=== PATIENT | female | born 1935 | race Caucasian/White ===

== ENCOUNTER 2023-02-05 21:38 | Emergency (ER) | payer MEDICARE, BC, SELFPAY ==
[2023-02-05 21:45] VITALS: BP 177/89; PULSE 76; RESP 20; TEMP 36.6; O2SAT 97; BMI 21.6
--- NOTE | 2023-02-05 21:45 | ED.NURSE ---
pt denies any spinal tenderness, all joints full ROM - denies any pain.
--- NOTE | 2023-02-05 22:29 | ED.NURSE ---
patient walked lap around ER with walker, steady gait. Denies any concerns.
[2023-02-05 22:33] VITALS: BP 165/84; PULSE 80; RESP 20; TEMP 36.7; O2SAT 97
[2023-02-05 22:34] VITALS: BP 165/84; PULSE 80; RESP 20; TEMP 36.7
--- NOTE | 2023-02-06 00:22 | ED.GENADULT ---
HPI - General Adult General Chief complaint: Laceration/Wound Stated complaint: Slipped in Bathroom Time Seen by Provider: 02/05/23 21:41 Source: patient and family Mode of arrival: ambulatory Limitations: no limitations History of Present Illness HPI narrative: 87-year-old female presents to the emergency department with her daughter after she suffered a fall at her assisted living facility, [facility]. Patient reports that she was walking to the bathroom when she slipped. She was wearing older slipper socks at the time. She fell forward, hitting her head on the toilet. There was no loss of consciousness, she was able to get herself up without any assistance and pulled the assistance cord in her bathroom. This caused staff to attend her quickly. She had some bleeding coming from a small laceration on her right eyebrow but was answering questions appropriately. No other areas of injury were identified. She was able to get herself up without assistance. She has told her story similarly to the staff at her care facility, her daughter who accompanies her today, the nurses and myself. She denies dizziness, chest pain, palpitations or other symptoms causing her to fall. She has felt well today. She has eaten normally, bowel movements have been normal, there has been no nausea or vomiting. She denies any neurological changes. On specific questioning, she admits that she has had 2 alcoholic beverages just prior to the fall. She reports that she does this most nights. Her daughter states that she only typically drinks 1 alcoholic beverage per night that is typically 1 oz of whiskey in a tall glass of soda. It is clear that the patient is drinking every day. Daughter states that patient is at her neurological baseline. Together, we discussed the risks and benefits of extensive workup. I am concerned about the patient possibly being intoxicated. We agree that if she can ambulate safely and answer all my questions that additional testing regarding this would not likely be helpful. Daughter does not want me to check a blood alcohol level or perform unnecessary tests if our exam is otherwise normal. I reviewed the records and see that she has not been evaluated for previous falls or alcohol related concerns in the emergency department. Past medical history is notable for diabetes, [id number]. She also has chronic pain from fibromyalgia for which she takes duloxetine and states that this is why she has alcohol at night because it less since her pain and helps her sleep. Remainder of her medications are as reflected in the medication list per patient, allergies are to amoxicillin and rofecoxib. No recent pertinent travel or illness exposures. ROS is notable for no trauma or injury besides the small laceration to the right eyelid as above, denies any body pain, generalized, cardiac, GI symptoms or other systems times 12 systems. Related Data Home Medications Medication Instructions Recorded Confirmed atorvastatin 40 mg tablet 40 mg PO DAILY 02/05/23 02/05/23 duloxetine 30 mg capsule,delayed 30 mg PO DAILY 02/05/23 02/05/23 release levothyroxine 50 mcg tablet 50 mcg PO DAILY 02/05/23 02/05/23 lisinopril 40 mg tablet 40 mg PO DAILY 02/05/23 02/05/23 metformin 500 mg tablet,extended 500 mg PO BID 02/05/23 02/05/23 release 24 hr metoprolol succinate 100 mg 100 mg PO DAILY 02/05/23 02/05/23 tablet,extended release 24 hr montelukast 10 mg tablet 10 mg PO DAILY 02/05/23 02/05/23 Allergies Allergy/AdvReac Type Severity Reaction Status Date / Time amoxicillin Allergy Mild Rash Verified 02/05/23 22:04 rofecoxib Allergy Mild Weakness Verified 02/05/23 22:04 [facility] Medical History Debility ?R53.81 - Other malaise (ICD-10) Depression, major, recurrent, mild ?F33.0 - Major depressive disorder, recurrent, mild (ICD-10) Essential hypertension ?I10 - Essential (primary) hypertension (ICD-10) Fibromyalgia ?M79.7 - Fibromyalgia (ICD-10) Hyperlipidemia ?E78.5 - Hyperlipidemia, unspecified (ICD-10) Hypothyroidism ?E03.9 - Hypothyroidism, unspecified (ICD-10) TIA (transient ischemic attack) ?G45.9 - Transient cerebral ischemic attack, unspecified (ICD-10) Type 2 diabetes mellitus without complication ?E11.9 - Type 2 diabetes mellitus without complications (ICD-10) Surgical History History of colonoscopy ?Z98.890 - Other specified postprocedural states (ICD-10) History of hysterectomy ?Z90.710 - Acquired absence of both cervix and uterus (ICD-10) No significant past surgical history Social History Smoking Status: Never smoker Second hand tobacco smoke exposure: No How often do you have a drink containing alcohol: never How often do you have six or more drinks on one occasion: Never AUDIT-C Alcohol total score: 0 Non-prescribed substance use: denies use Exam Const: Vital Signs, click to edit/add: Vital Signs - 24 hr 02/05/23 21:45 02/05/23 22:33 02/05/23 22:34 Temperature 97.8 F 98.0 F 98.0 F Pulse Rate [Right Pulse Oximeter] 76 80 80 Respiratory Rate 20 20 20 Blood Pressure [Le ft Upper Arm] 177/89 H 165/84 H 165/84 H Pulse Oximetry 97 97 Oxygen Delivery Me thod Room Air Room Air Documenting provider has reviewed patient's vital signs: yes Common normals: no apparent distress and alert General appearance: cooperative Other: She is giggly and does seem slightly intoxicated HENMT: Common normals: TM's normal bilaterally Tympanic membrane: TM's normal bilaterally Mouth: oral and palatal mucosa normal Throat: posterior oropharynx normal Other: No skull deformity. 1 cm laceration on right upper eyelid. No tenderness to brown bone. No crepitus or deformity to the facial bones. Mandible normal on exam with no tenderness. Jaw opens and closes normally. The oropharynx with no signs of tongue biting, dental injury or abnormalities to the oropharynx. Eye: Common normals: PERRL and EOMs intact bilaterally General eye: normal appearance of both eyes Pupil: PERRL Neck & C-Spine: Common normals: full ROM and no lymphadenopathy Cervical spine: cervical ROM normal; no cervical spine tenderness Resp: Common normals: normal respiratory effort, no retractions, no use of accessory muscles and clear to auscultation bilaterally Effort & inspection: able to speak in complete sentences Auscultation: clear to auscultation bilaterally Cardio: Common normals: no murmurs and peripheral pulses 2+ throughout Peripheral pulses: pulses 2+ throughout Other: Heart rate with PACs verses bigeminy. Does seem regularly irregular. GI: Common normals: Normal to inspection, nondistended, normoactive bowel sounds present, soft to palpation and no hepatosplenomegaly Palpation: soft and no hepatosplenomegaly Back & Pelvis: Common normals: thoracic and lumbar spine normal to inspection and no thoracic nor lumbar tenderness Extremity: Common normals: normal to inspection, full ROM, normal capillary refill, no joint enlargement and no pedal edema Other: No tenderness to palpation of clavicles, shoulders, wrists, hips, pelvis, knees, ankles or feet. Neuro: Common normals: CN's II-XII intact bilaterally, moves all extremities, no focal motor deficits and no sensory deficits noted Sensorium/orientation: alert Speech: speech normal Motor exam: no tremor noted Other: She ambulates around the emergency department with use of a walker with no significant deficits. Joking, answering questions appropriately. Psych: Attitude: engaged Activity/motor behavior: appropriate eye contact Insight: fair Judgement: fair Other: Lightly buzz but no severe intoxication. Skin: Narrative: 1 cm laceration on right eyelid, oozing slightly. Surrounding bruising but with no other signs of trauma or injury. No other areas of open skin, abrasions or lacerations. Course Vital Signs Vital signs: Initial Vital Signs Temperature 97.8 F 02/05/23 21:45 Temperature Source Temporal Artery Scan 02/05/23 21:45 Pulse Rate 76 02/05/23 21:45 Respiratory Rate 20 02/05/23 21:45 Blood Pressure 177/89 H 02/05/23 21:45 Blood Pressure Mean 118 02/05/23 21:45 Blood Pressure Position Sitting 02/05/23 21:45 Pulse Oximetry 97 02/05/23 21:45 Oxygen Delivery Method Room Air 02/05/23 21:45 Vital Signs Temperature 97.8 F 02/05/23 21:45 Pulse Rate 76 02/05/23 21:45 Respiratory Rate 20 02/05/23 21:45 Blood Pressure 177/89 H 02/05/23 21:45 Pulse Oximetry 97 02/05/23 21:45 Oxygen Delivery Method Room Air 02/05/23 21:45 Temperature 98.0 F 02/05/23 22:34 Pulse Rate 80 02/05/23 22:34 Respiratory Rate 20 02/05/23 22:34 Blood Pressure 165/84 H 02/05/23 22:34 Pulse Oximetry 97 02/05/23 22:33 Oxygen Delivery Method Room Air 02/05/23 22:33 Medical Decision Making MDM Narrative Medical decision making narrative: Elected to do an EKG because of the heart rhythm. This shows a sinus rhythm with some PACs and slight ever and conduction but rate is 74. There are otherwise no significant ST or T-wave abnormalities. No signs of ischemia. This is per my interpretation. I discussed the alcohol use with patient and her daughter. They are not overly concerned. As stated above, she is ambulating safely, answering questions appropriately and seems appropriate for medical decision making. They were receptive to my feedback that the amount of alcohol she is consuming at her age is not safe. She should not be drinking daily and she should never be drinking more than 1 alcoholic beverage per day. They are not interested in additional blood work to look at her heart. No interest in head CT since her neurological exam was essentially normal. They do not want alcohol level. They have no other concerns today. We elect to treat the small laceration only. Laceration repair: 1 cm right upper eyelid lesion with overlying bruising. Cleanse gently with soap and water. Still some blood oozing. Gently dried. Covered with Dermabond with good hemostasis and closure. Well tolerated Discharge Plan Discharge Clinical Impression: Facial laceration Patient Disposition: Home w/ Parent or Adult Condition: Improved Instructions: Laceration (DC) Additional Instructions: I have applied a specialized glue to cover the wound on your eyelid. This has controlled the bleeding. The eyelid will continue to swell and bruise. The I will turn black underneath the eye and this is not of concern. The eyelid may swell to the point where they I cannot be open for a couple of days and this is also okay. I do think that alcohol contributed to the fall today. As we discussed, I would recommend limiting the alcohol and especially no more than 1 drink per 24 hours. It is not advised to drink alcohol every day at your age either. If there is any loss of consciousness, seizure, persistent vomiting, it would warrant repeat evaluation in the emergency department. Activity Level: Activity as Tolerated Discharge Diet: Regular Prescriptions: No Action atorvastatin 40 mg tablet 40 mg PO DAILY levothyroxine 50 mcg tablet 50 mcg PO DAILY montelukast 10 mg tablet 10 mg PO DAILY lisinopril 40 mg tablet 40 mg PO DAILY metformin 500 mg tablet extended release 24 hr 500 mg PO BID duloxetine 30 mg capsule,delayed release(DR/EC) 30 mg PO DAILY metoprolol succinate 100 mg tablet extended release 24 hr 100 mg PO DAILY Follow Up/Referrals: Reed Goodman PA-C [Primary Care Provider] - Stand Alone Forms: [employer] Info Instructions
== END 2023-02-05 22:34 | disposition home or self-care (01) ==
PROVIDERS: Emergency Provider Family Medicine; PCP Physician Assistant
DX: S01.111A Laceration without foreign body of right eyelid and periocular area, initial encounter (principal); W01.198A Fall on same level from slipping, tripping and stumbling with subsequent striking against other object, initial encounter
CPT/HCPCS: 93005; 99282; 99283

== ENCOUNTER 2023-08-10 13:10 | Outpatient (CLI) | payer MEDICARE, BC, SELFPAY | END 2023-08-10 13:11 | disposition home or self-care (01) | LOC: NFLDREF 08-13 17:08 | PROVIDERS: PCP Physician Assistant; Referring Provider Physician Assistant; Visit Provider Nurse Practitioner Family | DX: R30.0 Dysuria (principal) | CPT/HCPCS: 87086; 87186 ==

== ENCOUNTER 2025-01-15 13:22 | Emergency (ER) | payer MEDICARE, BC, SELFPAY ==
[2025-01-15 13:26] VITALS: BP 142/76; PULSE 69; RESP 18; TEMP 36.2; O2SAT 97; BMI 21.5
--- NOTE | 2025-01-15 13:42 | CRLHL7_ITS ---
For Patients: As a result of the Century Cures Act, medical imaging exams and procedure reports are released immediately into your electronic medical record. You may view this report before your referring provider. If you have questions, please contact your health care provider. INDICATION: Weakness TECHNIQUE: CT head without contrast. COMPARISON: Head CT 05/20/2020 FINDINGS: CSF spaces: Within normal limits for age. Brain parenchyma: No intracranial bleed or mass effect. Low-density within the deep white matter with old right thalamic lacunar infarctions. Skull base and calvarium: The visualized paranasal sinuses and mastoid air cells demonstrate no acute or significant findings. The visualized orbits are grossly unremarkable. No skull fractures. Atherosclerosis. Bilateral temporomandibular joint osteoarthritis. IMPRESSION: 1. No intracranial bleed or mass effect. 2. 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 Please note that all CT scans at this facility use dose modulation, iterative reconstruction, and/or weight-based dosing when appropriate to reduce radiation dose to as low as reasonably achievable. Dictated by Teo Sewell MD @ 01/15/2025 2:23:21 PM (Electronically Signed)
--- NOTE | 2025-01-15 13:51 | ED.GENADULT ---
HPI - General Adult General Chief complaint: Weakness Stated complaint: Weakness Time Seen by Provider: 01/15/25 13:30 History of Present Illness HPI narrative: Patient is an 89-year-old female with a DNR DNI order who is here with her daughter. She lives at assisted living. She was doing well this morning but then had a period weakness over the last couple hours. She has had some sinus drainage but otherwise has no complaints. She was at physical therapy and they felt that she was not herself so they came to the ER. Again they reiterate the DNR DNI order and no aggressive treatment. They do want some workup though to see if there is a reason why she has fatigue. She declines any specific pain no chest pain, breathing problem, fever chills rigors. She has had no dysuria frequency. She has had some loose stools but she reports ?that is been forever?. She has typically active with a walker. She has had no falls. No trauma. Related Data Home Medications ?Medication ?Instructions ?Recorded ?Confirmed atorvastatin 40 mg tablet 40 mg PO DAILY 02/05/23 01/15/25 duloxetine 30 mg capsule,delayed 30 mg PO DAILY 02/05/23 01/15/25 release levothyroxine 50 mcg tablet 50 mcg PO DAILY 02/05/23 01/15/25 lisinopril 40 mg tablet 40 mg PO DAILY 02/05/23 01/15/25 metformin 500 mg tablet,extended 500 mg PO BID 02/05/23 01/15/25 release 24 hr metoprolol succinate 100 mg 100 mg PO DAILY 02/05/23 01/15/25 tablet,extended release 24 hr montelukast 10 mg tablet 10 mg PO DAILY 02/05/23 01/15/25 fluticasone propionate 50 2 spray intranasal DAILY 10/07/24 01/15/25 mcg/actuation nasal spray,suspension peg 400-propylene glycol 01/15/25 Allergies Allergy/AdvReac Type Severity Reaction Status Date / Time amoxicillin Allergy Mild Rash Verified 10/09/24 10:36 rofecoxib Allergy Mild Weakness Verified 10/09/24 10:36 Review of Systems Status of ROS: Reports: 6 or more systems reviewed and unremarkable except as noted in History and below [facility] Medical History Dysuria ?R30.0 - Dysuria (ICD-10) Fibromyalgia ?M79.7 - Fibromyalgia (ICD-10) TIA (transient ischemic attack) ?G45.9 - Transient cerebral ischemic attack, unspecified (ICD-10) Hypothyroidism ?E03.9 - Hypothyroidism, unspecified (ICD-10) Hyperlipidemia ?E78.5 - Hyperlipidemia, unspecified (ICD-10) Depression, major, recurrent, mild ?F33.0 - Major depressive disorder, recurrent, mild (ICD-10) Essential hypertension ?I10 - Essential (primary) hypertension (ICD-10) Type 2 diabetes mellitus without complication ?E11.9 - Type 2 diabetes mellitus without complications (ICD-10) Debility ?R53.81 - Other malaise (ICD-10) Surgical History History of phacoemulsification of cataract of both eyes with intraocular lens implantation ?Z98.41 - Cataract extraction status, right eye (ICD-10) ?Z98.42 - Cataract extraction status, left eye (ICD-10) ?Z96.1 - Presence of intraocular lens (ICD-10) History of colonoscopy ?Z98.890 - Other specified postprocedural states (ICD-10) History of hysterectomy ?Z90.710 - Acquired absence of both cervix and uterus (ICD-10) Social History Smoking Status: Never smoker Second hand tobacco smoke exposure: No How often do you have a drink containing alcohol: never How often do you have six or more drinks on one occasion: Never AUDIT-C Alcohol total score: 0 Non-prescribed substance use: denies use Exam Narrative: Exam Narrative: Objective: Patient's vital signs short to be afebrile with a good blood pressure 142/76 O2 sat excellent at 97% pulse is 69 regular rash rate 18 Alert orient x3, slow to respond but I think that is normal baseline for her per her daughter. She appears to slightly pale. She does not have pale conjunctiva however Mouth is dry Neck is supple Chest clear diminished air exchange Heart rhythm regular 2/6 systolic murmur occasional ectopic beat noted Abdomen benign soft nontender Extremities are no edema neurologic nonfocal, patient moves all 4s, she has no bruising or changes on her legs or arms. Const: Vital Signs, click to edit/add: Vital Signs - 24 hr 01/15/25 13:26 01/15/25 13:52 01/15/25 14:02 Temperature 97.1 F L Pulse Rate 67 Pulse Rate [Pulse Oximeter] 69 Respiratory Rate 18 20 Blood Pressure 120/60 Blood Pressure [Ri ght Upper Arm] 142/76 H Pulse Oximetry 97 97 98 Oxygen Delivery Me thod Room Air Room Air 01/15/25 14:31 Temperature Pulse Rate 69 Pulse Rate [Pulse Oximeter] Respiratory Rate 20 Blood Pressure 141/73 H Blood Pressure [Ri ght Upper Arm] Pulse Oximetry 97 Oxygen Delivery Me thod Room Air Course Vital Signs Vital signs: Initial Vital Signs Temperature 97.1 F L 01/15/25 13:26 Temperature Source Temporal Artery Scan 01/15/25 13:26 Pulse Rate 69 01/15/25 13:26 Respiratory Rate 18 01/15/25 13:26 Blood Pressure 142/76 H 01/15/25 13:26 Blood Pressure Mean 98 01/15/25 13:26 Pulse Oximetry 97 01/15/25 13:26 Oxygen Delivery Method Room Air 01/15/25 13:26 Vital Signs Temperature 97.1 F L 01/15/25 13:26 Pulse Rate 69 01/15/25 13:26 Respiratory Rate 18 01/15/25 13:26 Blood Pressure 142/76 H 01/15/25 13:26 Pulse Oximetry 97 01/15/25 13:26 Oxygen Delivery Method Room Air 01/15/25 13:26 Temperature 97.1 F L 01/15/25 13:26 Pulse Rate 69 01/15/25 14:31 Respiratory Rate 20 01/15/25 14:31 Blood Pressure 141/73 H 01/15/25 14:31 Pulse Oximetry 97 01/15/25 14:31 Oxygen Delivery Method Room Air 01/15/25 14:31 Medications Administered Medications: Discontinued Medications Generic Name Dose Route Start Last Admin Trade Name Freq PRN Reason Stop Dose Admin Sodium Chloride 500 mls @ 500 mls/hr 01/15/25 13:42 01/15/25 14:44 0.9 % Sodium Chloride 500 Ml IV 01/15/25 14:41 Infused .Q1H ONE Infusion Medical Decision Making MDM Narrative Medical decision making narrative: 89-year-old female living at assisted living with a history of type 2 diabetes history of debility. At this point there has been some generalized weakness over the last few hours. I think will check a head CT, labs, give some IV fluids she appears dry and mildly dehydrated. Will check urinalysis. Disposition pending findings and clinical response. Again her daughter reiterates the DNR DNI status. Addendum 3:45 p.m.: Patient's head CT was read as basically unremarkable other than chronic changes, there is some old type infarcts but nothing acute. White count is normal 7004 in 10 hemoglobin 11.3, ER profile shows a low sodium at 128, the rest of ER profile looks unremarkable other glucose slightly elevated at 144 nonfasting. Alkaline phos is elevated at 209, her CRP however is negative at point less than 0.05. ProBNP is elevated at 11 30, viral studies are negative, urinalysis is pending. Patient did receive IV fluids she feels little bit better. Will review her urinalysis when returns and treat if abnormal. Patient will need to be tested with ambulation if she can not walk she likely will need observation status the hospital probably transition to a fpc. Addendum 4:05 p.m. the patient passed a road test and is able to walk with her walker no problem. Should be discharged home. Urinalysis looks negative. Lab Data Labs: Lab Results 01/15/25 01/15/25 Range/Units 14:05 15:00 WBC 7.41 (4.50-11.00) K/uL RBC 3.72 L (4.00-5.20) m/uL Hgb 11.3 L (12.0-16.0) gm/dL Hct 33.9 (33.0-51.0) % MCV 91 (80-100) fL MCH 30 (26-34) pg MCHC 33 (32-36) gm/dL RDW Coeff of Alexei 13.1 (11.5-15.5) % Plt Count 198 (140-440) K/uL Neut % (Auto) 72.8 H (42.0-72.0) % Lymph % (Auto) 18.8 L (20-44) % Saunders % (Auto) 6.6 (0.0-11.0) % Eos % (Auto) 1.2 (0.0-7.0) % Baso % (Auto) 0.3 (0.0-3.0) % Neut # (Auto) 5.40 (1.7-7.0) K/uL Lymph # (Auto) 1.40 (0.90-2.90) K/uL Saunders # (Auto) 0.50 (0.00-0.90) K/UL Eos # (Auto) 0.09 (0.00-0.50) K/uL Baso # (Auto) 0.02 (0.00-0.30) K/uL Abs Immat Gran (auto) 0.02 (0.00-0.30) K/uL Imm/Tot Granulo (auto) 0.3 % INR 0.94 (0.91-1.10) Sodium 128 L (135-149) mmol/L Potassium 4.2 (3.6-5.1) mmol/L Chloride 95 L (96-114) mmol/L Carbon Dioxide 23 (20-32) mmol/L Anion Gap 10 (7-15) mEq/L BUN 20 (7-30) mg/dL Creatinine 1.3 (0.5-1.5) mg/dL Estimated Creat Clear 26.33 Estimated GFR 40 ml/min Glucose 144 H (60-115) mg/dL Calcium 8.9 (8.4-10.6) mg/dL Total Bilirubin 0.8 (0.1-1.5) mg/dL Direct Bilirubin 0.3 (0.0-0.5) mg/dL AST 26 (12-35) U/L ALT 15 (4-35) U/L Alkaline Phosphatase 209 H (40-150) U/L Troponin I < 0.01 (0.01-0.04) ng/mL C-Reactive Protein < 0.5 L (0.5-1.0) mg/dL NT-Pro-B Natriuret Pep 1130 pg/mL Total Protein 6.6 (6.0-8.3) g/dL Albumin 4.2 (3.3-5.0) g/dL Urine Color Yellow (Yellow) Urine Appearance Clear (Clear) Urine pH 5.5 (5.0-8.5) Ur Specific [place] 1.015 (1.000-1.030) Urine Protein 1+ A (Negative) Urine Glucose (UA) Negative (Negative) Urine Ketones Negative (Negative) Urine Blood Negative (Negative) Urine Nitrite Negative (Negative) Urine Bilirubin Negative (Negative) Urine Urobilinogen 0.2 (0.2-1.0) Ur Leukocyte Esterase Negative (Negative) Urine RBC 0-2 (0-2) Urine WBC 0-2 (0-5) Ur Squamous Epith Cells None (None-Few) Urine Bacteria None (None) SARS-CoV-2 (PCR) Negative SARS-CoV-2 (Negative) Influenza Type A (PCR) Negative PCR FLU A (Negative) Influenza Type B (PCR) Negative PCR FLU B (Negative) RSV (PCR) Negative PCR RSV (Negative) Discharge Plan Discharge Clinical Impression: Weakness Patient Disposition: Home w/ Parent or Adult Condition: Improved Additional Instructions: Light activity, push fluids, return if problems or concerns. Update primary care in a day or 2. Would recommend to get a repeat sodium level done within the next 4-5 days. Activity Level: Light activity Discharge Diet: Regular Prescriptions: No Action fluticasone propionate 50 mcg/actuation spray,suspension 2 spray intranasal DAILY peg 400-propylene glycol atorvastatin 40 mg tablet 40 mg PO DAILY levothyroxine 50 mcg tablet 50 mcg PO DAILY montelukast 10 mg tablet 10 mg PO DAILY lisinopril 40 mg tablet 40 mg PO DAILY metformin 500 mg tablet extended release 24 hr 500 mg PO BID duloxetine 30 mg capsule,delayed release(DR/EC) 30 mg PO DAILY metoprolol succinate 100 mg tablet extended release 24 hr 100 mg PO DAILY Follow Up/Referrals: Reed Goodman PA-C [Primary Care Provider] - Stand Alone Forms: [employer] Info Instructions
[2025-01-15 13:52] VITALS: O2SAT 97
[2025-01-15] MEDS: 0.9 % SODIUM CHLORIDE 500 ML 500 ML IV (14:00)
[2025-01-15 14:02] VITALS: BP 120/60; PULSE 67; RESP 20; O2SAT 98
[2025-01-15 14:14] LABS: Basophils Absolute Auto 0.02 K/uL (0.00-0.30); Basophils Percent Auto 0.3 % (0.0-3.0); Eosinophils Absolute Auto 0.09 K/uL (0.00-0.50); Eosinophils Percent Auto 1.2 % (0.0-7.0); Hematocrit 33.9 % (33.0-51.0); Hemoglobin* 11.3 gm/dL (12.0-16.0); Immature Granulocytes Abs Auto 0.02 K/uL (0.00-0.30); Immature Granulocytes Pct Auto 0.3 %; Lymphocytes Percent Auto 18.8 % (20-44); Mean Corpuscular HGB Conc 33 gm/dL (32-36); Mean Corpuscular Hemoglobin 30 pg (26-34); Mean Corpuscular Volume 91 fL (80-100); Monocytes Percent Auto 6.6 % (0.0-11.0); Neutrophils Percent Auto 72.8 % (42.0-72.0); Platelet Count* 198 K/uL (140-440); RDW Coefficient of Variation % 13.1 % (11.5-15.5); Red Blood Count 3.72 m/uL (4.00-5.20); White Blood Count* 7.41 K/uL (4.50-11.00)
[2025-01-15 14:28] LABS: Albumin* 4.2 g/dL (3.3-5.0); Chloride* 95 mmol/L (96-114); Sodium* 128 mmol/L (135-149)
[2025-01-15 14:29] LABS: Potassium* 4.2 mmol/L (3.6-5.1)
[2025-01-15 14:31] VITALS: BP 141/73; PULSE 69; RESP 20; O2SAT 97
[2025-01-15 14:31] LABS: Blood Urea Nitrogen* 20 mg/dL (7-30); Carbon Dioxide* 23 mmol/L (20-32); Creatinine* 1.3 mg/dL (0.5-1.5); Est. Creatinine Clearance* 26.33; Estimated Glomerular Filt Rate 40 ml/min; INR 0.94 (0.91-1.10); Prothrombin Time 13.4 Seconds
[2025-01-15 14:32] LABS: Alanine Aminotransferase* 15 U/L (4-35); Alkaline Phosphatase* 209 U/L (40-150); Anion Gap 10 mEq/L (7-15); Aspartate Amino Transferase* 26 U/L (12-35); Bilirubin Direct* 0.3 mg/dL (0.0-0.5); Bilirubin Total* 0.8 mg/dL (0.1-1.5); Calcium* 8.9 mg/dL (8.4-10.6); Glucose* 144 mg/dL (60-115); Total Protein* 6.6 g/dL (6.0-8.3)
[2025-01-15 14:56] LABS: PCR FLU A Negative PCR FLU A (Negative); PCR FLU B Negative PCR FLU B (Negative); PCR RSV Negative PCR RSV (Negative); SARS PCR* Negative SARS-CoV-2 (Negative)
[2025-01-15 14:57] LABS: C Reactive Protein* < 0.5 mg/dL (0.5-1.0); NT Pro B Type NatriureticPept* 1130 pg/mL; Troponin I* < 0.01 ng/mL (0.01-0.04)
--- OUTSIDE RECORDS SUMMARY | 2025-01-15 14:57 | XMS_ITS | Encounter Summary ---
Author Organization [facility] Address [address] [place] [address] Care Team Providers Care University Dean Name Role Phone Reed Goodman P.A.-C. Primary Care Provider Reason for Referral * Outpatient (Routine) - Authorized Specialty Diagnoses / Procedures Referred By Contac t Referred To Contact Diagnoses Cerumen Impacted Bilateral Procedures FAM Ear wax removal procedure Reed Goodman P.A.-C. [address] [place] [address] Phone: tel: fax: [facility] Region Referral ID Status Reason Start Date Expiration Date V isits Requested Visits Authorized [id number] Authorized 12/16/2024 03/18/2026 1 1 ER OPERATOR * Outpatient (Routine) - Authorized Specialty Diagnoses / Procedures Referred By Contac t Referred To Contact Family Medicine Reed Goodman P.A.-C. [address] [place] [address] Phone: tel: fax: [facility] Region Referral ID Status Reason Start Date Expiration Date V isits Requested Visits Authorized [id number] Authorized 12/16/2024 06/17/2026 1 1 ER OPERATOR Reason for Visit * Reason Comments Follow-up Discuss labs. Check ears. * Outpatient (Routine) - Closed Specialty Diagnoses / Procedures Referred By Elicia rodgers Referred To Contact Family Medicine Reed Goodman P.A.-C. [address] [place] [address] Phone: tel: fax: [facility] Region Referral ID Status Reason Start Date Expiration Date Visits Re quested Visits Authorized [id number] Closed 06/13/2024 12/13/2025 1 1 Encounter Details Date Type Department Care Team (Latest Contact Info) Description 12/16/2024 1:00 PM MALTER OPERATOR Office Visit Department of Family Medicine, [facility], in [place], [place] [address] [place] [address] Reed Goodman P.A.-C. 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 No 12/09/2024 Humiliation, Afraid, Rape, and Kick questionnair e Answer Date Recorded Fear of Current or Ex-Partner Not on file Emotionally Abused Not on file 07/09/2020 Physically Abused Not on file 07/09/2020 Within the last year, have y ou been raped or forced to have any kind of sexual activity by your partner or ex-partner? No 07/09/2020 Social Connection and Isolat ion Panel [NHANES] Answer Date Recorded In a typical week, how many times do you talk on the phone with family, friends, or neighbors? More than three times a week 05/27/2022 How often do you get togethe r with friends or relatives? More than three times a week 05/27/2022 How often do you attend chur or yarsani services? Never 05/27/2022 Do you belong to any clubs o r organizations such as presybeterian groups, unions, fraternal or athletic groups, or school groups? No 05/27/2022 Attends Club or Organization Meetings Not on elio e 05/27/2022 Are you , , di vorced, , never , or living with a partner? 05/27/2022 AUDIT-C Answer Date Recorded Q1: How often do you have a drink containing alcohol? 4 or more times a week 05/27/2022 Q2: How many drinks containi ng alcohol do you have on a typical day when you are drinking? 1 or 2 Q3: How often do you have si x or more drinks on one occasion? Never 05/27/2022 Overall Financial Resource Strain (CARDIA) Answe r Date Recorded How hard is it for you to pa y for the very basics like food, housing, medical care, and heating? Not hard at all 10/04/2023 PHQ-2 Answer Date Recorded PHQ-2 Score 2 12/16/2024 [facility] - Occupational Stress Questionnaire Answer Date Recorded Do you feel stress - tense, restless, nervous, or anxious, or unable to sleep at night because your mind is troubled all the time - these days? Only a little 05/27/2022 Exercise Vital Sign Answer Date Recorde d On average, how many days pe r week do you engage in moderate to strenuous exercise (like a brisk walk)? 0 days 12/09/2024 On average, how many minutes do you engage in exercise at this level? 0 min 12/09/2024 Hunger Vital Sign Answer Date Recorded Within the past 12 months, y ou worried that your food would run out before you got the money to buy more. Never true 12/09/19 25 Within the past 12 months, t he food you bought just didn't last and you didn't have money to get more. Never true 12/09/2024 PRAPARE - Transportation Answer Date Re corded In the past 12 months, has l ack of transportation kept you from medical appointments or from getting medications? No 11/23 In the past 12 months, has l ack of transportation kept you from meetings, work, or from getting things needed for daily living? No 12/09/2024 Depression Answer Date Recor ded PHQ-9 Total Score (max 27) 12 12/16 Nutrition Answer Date Recorded On average, how many serving s of fruits and vegetables do you eat per day (serving size is equal to 1 cup or approximately the size of a tennis ball)? 0-2 12/09/2024 Dental Answer Date Recorded Dental: Regular Dentist No 05/27/20 Employment Answer Date Recorded Employment status Retired 12/09/2024 Housing Stability Answer Date Recorded What is your living situation today? I have a [facility] place to live 12/09/2024 Education Answer Date Recorded What is the highest level of school you have completed or the highest degree you have received? Some college, no degree 09/25/2019 Comments No Sex and Gender Information Value Date Recorded Sex Assigned at Female 12/14/2023 12:48 PM MALTER OPERATOR Legal Sex Female 9:49 PM MALTER OPERATOR Gender Identity Female 12/14/2023 12:48 PM MALTER OPERATOR Sexual Orientation Choose not to disclose 2023 12:48 PM MALTER OPERATOR documented as of this encounter Last Filed Vital Signs Vital Sign Reading Time Taken Comments Blood Pressure 120/79 12/16/2024 12:45 PM MALTER OPERATOR Pulse 74 12/16/2024 12:45 PM MALTER OPERATOR Temperature 35.8 C (96.4 F) 12/16/2024 12:45 PM MALTER OPERATOR Respiratory Rate 16 12/16/2024 12:45 PM MALTER OPERATOR Oxygen Saturation - - Inhaled Oxygen Concentration - - Weight 54.6 kg (120 lb 5.9 oz) 12/16/2024 12:45 PM MALTER OPERATOR Height - - Body Mass Index 21.06 12/14/2023 1:28 PM MALTER OPERATOR documented in this encounter Progress Notes * Reed Goodman P.A.-C. - 12/16/2024 1:00 PM CST SUBJECTIVE CHIEF COMPLAINT / REASON FOR VISIT Rosa Elena Harrell is a 89 y.o. female who presents for evaluation of Follow-up (Discuss labs. Check ears. ). HISTORY OF PRESENT ILLNESS Rosa Elena presents today for her six-month follow-up of her diabetes. Overall her diabetes has been pretty well controlled she lives in an assisted living facility that she enjoys. She says that they feed her too many carbohydrates but otherwise she is doing okay. She has had a difficult time hearing recently she is wondering if she has some wax in her ears. She does wear hearing aids. OBJECTIVE Vitals: 12/16/24 1245 BP: 120/79 BP Location: Left arm Patient Position: Sitting Cuff Size: Regular Pulse: 74 Resp: 16 Temp: (!) 35.8 ??C TempSrc: Temporal Weight: 54.6 kg Body mass index is 21.06 kg/m??. PHYSICAL EXAMINATION In general she appears in no acute distress Heart: Regular rate rhythm Lungs: Clear to auscultation ENT: Ear canals are occluded with cerumen bilaterally. ASSESSMENT / PLAN #1 Depression Major Recurrent Mild (HCC) Overall this is pretty stable. I stressed the importance of her continuing to work on her activity as much as possible a trying to walk as much as possible. She continues on the [employer] #2 Diabetes Mellitus Type 2 Without Complication (HCC) Continue on metformin. Will check her diabetic labs in six months #3 Debility She continues to use a walker I stressed the importance of trying to be as active as possible #4 Hypothyroidism Will check a TSH when I see her back in six months #5 Cerumen Impacted Bilateral We irrigated this today. On secondary exam her ear canals were clear and she will continue to use her hearing aids. Total time spent 30 minutes Reed Goodman P.A.-C. ER OPERATOR documented in this encounter Procedure Notes * Anisha Jordan L.PLeoN. - 12/16/2024 1:00 PM CSTAssociated Order(s): [facility] Ear wax removal procedure Pre-Procedure Diagnose(s): Cerumen Impacted Bilateral Post-Procedure Diagnose(s): Cerumen Impacted Bilateral [facility] Ear wax removal procedure Performed by: Anisha Jordan L.P.N. Authorized by: Reed Goodman P.A.-CLeo PROCEDURE DETAILS Location: left ear and right ear Procedure type: irrigation Scope used: otoscope CONSENT Consent obtained: verbal Consent given by: patient PRE-PROCEDURE DETAILS Indication: cerumen impaction POST-PROCEDURE DETAILS Inspection: partial impaction removal Procedure completed successfully: yes ER OPERATOR documented in this encounter Plan of Treatment Scheduled Orders Name Type Priority Associated Diagnoses Orde r Schedule Albumin, Random, Urine Lab Routine Diabetes Mellitus Type 2 Without Complication (HCC) Expected: 06/15/2025 (Approximate), Expires: 12/16/2025 Hemoglobin A1c Lab Routine Diabetes Mellitus Type 2 Without Complication (HCC) Expected: 06/15/2025 (Approximate), Expires: 12/16/2025 Comprehensive Metabolic Panel Lab Routine Diabetes Mellitus Type 2 Without Complication (HCC) Expected: 06/15/2025 (Approximate), Expires: 12/16/2025 Lipid Panel Lab Routine Diabetes Mellitus Type 2 Without Complication (HCC) Expected: 06/15/2025 (Approximate), Expires: 12/16/2025 Thyroid Function [place] [facility] Routine Hypothyroidism Expected: 06/15/2025 (Approximate), Expires: 03/15/2026 Scheduled Referrals Name Type Priority Associated Diagnoses Orde r Schedule Family Medicine office visit (clinic) Outpatient Referral Routine Expected: 06/15/2025 (Approximate), Expires: 03/15/2026 documented as of this encounter Procedures Procedure Name Priority Date/Time Associated Diagnosis Comments VA RMVL IMPACT CERUMEN IRRIG UNILAT Routine 12/16/2024 1:00 PM MALTER OPERATOR Cerumen Impacted Bilateral documented in this encounter Results * VA RMVL IMPACT CERUMEN IRRIG UNILAT (12/16/2024 1:00 PM MALTER OPERATOR) Narrative [facility] - 12/16/2024 1:00 PM MALTER OPERATOR Anisha Jordan L.P.N. 12/16/2024 4:31 PM FAM Ear wax removal procedure Performed by: Anisha Jordan L.P.N. Authorized by: Reed Goodman P.ALeo-CLeo PROCEDURE DETAILS Location: left ear and right ear Procedure type: irrigation Scope used: otoscope CONSENT Consent obtained: verbal Consent given by: patient PRE-PROCEDURE DETAILS Indication: cerumen impaction POST-PROCEDURE DETAILS Inspection: partial impaction removal Procedure completed successfully: yes Reed Goodman P.A.-C. PROCEDURE/MINOR SURGIC AL ORDERABLES Final Result [facility] NA documented in this encounter Visit Diagnoses Diagnosis Hypothyroidism- Primary Depression Major Recurrent Mild Diabetes Mellitus Type 2 Without Complication (HCC) Debility Cerumen Impacted Bilateral documented in this encounter Additional Health Concerns Assessment Noted Time PHQ-9 Depression Total Score: 12 025 12:24 PM MALTER OPERATOR documented as of this encounter Care Teams University Dean Relationship Specialty Start Date End Date Reed Goodman P.A.-C. [address] [place] [phone] PCP - General Family Medicine 02/16/23 Ericka Quinn 10/23/11 documented as of this encounter
--- OUTSIDE RECORDS SUMMARY | 2025-01-15 14:57 | XMS_ITS | Encounter Summary ---
Author Organization [facility] Address [address] [place] [address] Care Team Providers Care Outboard Motor Assembler Name Role Phone Reed Goodman P.A.-C. Primary Care Provider Encounter Details Date Type Department Care Team (Latest Contact Info) Description 12/12/2024 12:06 PM HEDGE FUND ACCOUNTANT - 12/12/2024 11:59 PM HEDGE FUND ACCOUNTANT Hospital Encounter Department of Laboratory Medicine in [place], [place] [address] [place] [address] Reed Goodman P.A.-C. [address] [place] [phone] Diabetes Mellitus Type 2 Without Complication (HCC) Discharge Disposition: Home or Self Care Social History Tobacco Use Types Packs/Day Years Used Date Smoking Tobacco: Former Cigarettes Q uit: 09/24/1971 Smokeless Tobacco: Never Alcohol Use Standard Drinks/Week Comments Yes 10 (1 standard drink = 0.6 oz pu re alcohol) [facility] Utilities Answer Date Recorded In the past 12 months has [employer], gas, oil, or water [employer] threatened to shut off services in your [...] How often do you attend chur or yazidi services? Never 05/27/2022 Do you belong to any clubs o r organizations such as holiness groups, unions, fraternal or athletic groups, or [...] when you are drinking? 1 or 2 2 Q3: How often do you have si x or more drinks on one occasion? Never 05/27/2022 Overall Financial Resource Strain (CARDIA) Answe r Date Recorded How hard is it for you to pa y for the very basics like food, housing, medical care, and heating? Not hard at all 10/04/2023 PHQ-2 Answer Date Recorded PHQ-2 Score 0 02/14/2024 [facility] Answer Date Recorded [...] money to buy more. Never true 12/09/19 Within the past 12 months, t he [...] Recor ded PHQ-9 Total Score (max 27) 3 02/13 Nutrition Answer Date Recorded On average, how [...] your living situation today? I have a [facility] place to live 12/09/2024 Education Answer Date Recorded What is the highest level of school you have completed or the highest degree you have received? Some college, no degree 09/25/2019 Comments No Sex and Gender Information Value Date Recorded Sex Assigned at Female 12/14/2023 12:48 PM HEDGE FUND ACCOUNTANT Legal Sex Female 9:49 PM HEDGE FUND ACCOUNTANT Gender Identity Female 12/14/2023 12:48 PM HEDGE FUND ACCOUNTANT Sexual Orientation Choose not to disclose 2023 12:48 PM HEDGE FUND ACCOUNTANT documented as of this encounter Medications at Time of Discharge atorvastatin (Lipitor) 40 mg tablet Take 1 tablet (40 mg total) by mouth at bedtime. 90 tablet 3 06/13/2024 5 DULoxetine (Cymbalta) [address] capsule Take 1 capsule (30 mg total) by mouth 2 (two) times a day. 180 capsule 3 06/13/2024 5 fluticasone propionate (Flonase) 50 mcg/actuation nasal spray Administer 2 sprays into each nostril daily. Shake well before use. 48 g 3 06/13/2024 levothyroxine 50 mcg tablet Take 1 tablet (50 mcg total) by mouth daily. 90 tablet 3 06/13/2024 lisinopriL 40 mg tablet Take 1 tablet (40 mg total) by mouth daily. 90 tablet 3 06/13/2024 metFORMIN XR (Glucophage-XR) 500 mg 24 hr tablet Take 1 tablet (500 mg total) by mouth daily with morning meal. 90 tablet 3 06/13/2024 metoprolol succinate (Toprol XL) 100 mg 24 hr tablet Take 1 tablet (100 mg total) by mouth daily. Do not crush or chew. 90 tablet 3 06/13/2024 montelukast (Singulair) 10 mg tablet Take 1 tablet (10 mg total) by mouth every evening. 90 tablet 3 06/13/2024 peg 400-propylene glycol (SYSTANE) 0.4-0.3 % ophthalmic solution 1 drop 3 (three) times a day as needed for dry eyes. vitamins A,C,K-wifa-ergdu r (PRESERVISION AREDS) 7,160 Units-113 mg-100 Units per tablet Take 1 tablet by mouth 2 (two) times a day. Areds 2 documented as of this encounter Plan of Treatment Not on file documented as of this encounter Procedures Procedure Name Priority Date/Time Associated Diagnosis Comments HEMOGLOBIN A1C, B Routine 12/12/2024 12: 25 PM HEDGE FUND ACCOUNTANT Diabetes Mellitus Type 2 Without Complication (HCC) documented in this encounter Results * (ABNORMAL) Hemoglobin A1c (12/12/2024 12:25 PM HEDGE FUND ACCOUNTANT) Hemoglobin A1c, B 7.0(H) 4.2 - 5.6 % 12/12/2024 6:20 PM HEDGE FUND ACCOUNTANT OWAT Comment: Hemoglobin A1c values greater than or equal to 6.5 percent are diagnostic for diabetes mellitus. Diagnosis should be confirmed by repeat testing. In diabetic patients, HbA1c goals should be discussed with healthcare provider. Blood (Blood, Venous) 12/12/2024 12:25 PM HEDGE FUND ACCOUNTANT 12/12/2024 5:58 PM HEDGE FUND ACCOUNTANT Reed Goodman P.A.-C. LAB BLOOD ADD-ON Final Result [facility] [address] [place] [address], [place] OWAT [facility] in [place] [address] [place] [address] documented in this encounter Visit Diagnoses Diagnosis Diabetes Mellitus Type 2 Without Complication (HCC) documented in this encounter Additional Health Concerns Assessment Noted Time PHQ-9 Depression Total Score: 3 02/14/20 24 9:03 PM CDT documented as of this encounter Care Teams Outboard Motor Assembler Relationship Specialty Start Date End Date Reed Goodman P.A.-C. [address] [place] [address] [place] [address] PCP - General Family Medicine 02/16/23 Ericka Quinn 10/23/11 documented as of this encounter
--- OUTSIDE RECORDS SUMMARY | 2025-01-15 14:57 | XMS_ITS | Clinical Summary ---
Author Organization [facility] Address [address] [place] [address] Care Team Providers Care Hair Or Beauty Salon Manager Name Role Phone Reed Goodman Primary Care Provider [phone] Allergies Active Allergy Reactions Criticality Noted Date Comments Amoxicillin Rash 05/05/2006 Penicillin V Rash Low 03/01/2017 Rofecoxib Other - Describe In Comment Field Weakness Medications LISINOPRIL 40 MG TAB Take one tablet daily 0 6 Active levothyroxine (SYNTHROID) 50 mcg tablet Take 50 mcg by mouth before breakfast. Active montelukast (SINGULAIR) 10 mg tablet Take 10 mg by mouth once daily in the evening. Active emollient combination no.59 (CUSTOM BASE PCCA LIPODERM TOP) Apply topically to affected area(s). Amitriptyline 2%, gabapentin 5%, ketamine 5% Apply topically 2 times a day 1 Active fluticasone (50 mcg per actuation) nasal solution (FLONASE) Inhale 2 Sprays to both nostrils once daily. 1 Active metoprolol succinate (TOPROL XL) 100 mg Sustained-Relea se tablet Take 100 mg by mouth once daily in the evening. 1 Active artificial tears, peg 400-propylene glycol, (SYSTANE) 0.4-0.3 % drop ophthalmic 1 Drop. 1 drop 3 (three) times a day as needed for dry eyes Active VITAMINS A,C,E-ZINC-CAYLA ER (PRESERVISION AREDS) 7,160 unit- 113 mg-100 unit tablet Take 1 Tablet by mouth 2 times daily. Active aspirin (ECOTRIN) 81 mg enteric coated tablet Take 81 mg by mouth once daily with a meal. Active atorvastatin (LIPITOR) 10 mg tablet Take 10 mg by mouth once daily with evening meal. Active clopidogreL (Plavix) 75 mg tablet Take 75 mg by mouth once daily in the evening. Active Active Problems Problem Noted Date Diagnosed Date Hypercalcemia Social History Tobacco Use Types Packs/Day Years Used Date Smoking Tobacco: Former Smokeless Tobacco: Never Comments:Quit 50 years ago Alcohol Use Standard Drinks/Week Comments No 0 (1 standard drink = 0.6 oz pur e alcohol) Comments No Sex and Gender Information Value Date Recorded Sex Assigned at Not on file Legal Sex Female 7:16 AM INDEPENDENT LIVING INSTRUCTOR Gender Identity Not on file Sexual Orientation Not on file Obstetrics History Last Filed Vital Signs Vital Sign Reading Time Taken Comments Blood Pressure 139/65 05/27/2021 2:20 PM CDT Pulse 85 05/27/2021 1:50 PM CDT Temperature 36.8 C (98.2 F) 05/27/2021 1:47 PM CDT Respiratory Rate 16 05/27/2021 2:20 PM CDT Oxygen Saturation 97% 05/27/2021 2:20 PM CDT Inhaled Oxygen Concentration - - Weight 57.3 kg (126 lb 6.4 oz) 05/27/2021 10:01 AM CDT Height 162 cm (5' 3.78) 05/19/2021 8:04 AM CDT Body Mass Index 21.85 05/19/2021 8:04 AM CDT Plan of Treatment Health Maintenance Due Date Last Done Comments Tdap 1948 Depression screening for age 12+ 1949 BMI (ht and wt on same day) for age 18+ 1955 Tetanus booster 1957 Pneumococcal series for age 50+ (1 of 1 - PCV) 1987 Zoster (shingles) series for age 50+ (1 of 2) 1987 DEXA/DXA scan for age 65+ 2002 RSV vaccine for adults or pr egnancy (1 - 1-dose 75+ series) 2012 COVID-19 vaccine series ( season) 2024 10/04/2023, 01/09/2021 Influenza Vaccine (#1) 2024 Insurance MEDICARE PB ONLY MEDICARE PART A HB ONLY MEDICARE PART B HB ONLY [facility] FED EMP Advance Directives * Full Code (Latest Code Status on File) Date Activated Date Inactivated Comments 05/27/2021 10:31 AM 05/27/2021 5:20 PM Question Answer Comments Code Status Discussion: Not Discussed Care Teams Hair Or Beauty Salon Manager Relationship Specialty Start Date End Date Reed Goodman PA [address] [place] [address] [place] [phone] PCP - General Physician Local Area Network Administrator 04/17/24
--- OUTSIDE RECORDS SUMMARY | 2025-01-15 14:57 | XMS_ITS | Encounter Summary ---
Author Organization [facility] Address [address] [place] [address] Care Team Providers Care Economic Geographer Name Role Phone Reed Goodman P.A.-C. Primary Care Provider Reason for Referral * Outpatient (Routine) - Authorized Specialty Diagnoses / Procedures Referred By Contac t Referred To Contact Radha Maharaj M.D. [address] [place] [address] Phone: tel: fax: [facility] Region Referral ID Status Reason Start Date Expiration Date V isits Requested Visits Authorized [id number] Authorized 12/16/2024 06/17/2026 1 1 Scheduling Instructions 12-Month Medicare Visit CAL BILLING CODER Reason for Visit * Reason Comments Medicare Annual Wellness Visit Subsequen t * Outpatient (Routine) - Closed Specialty Diagnoses / Procedures Referred By Contac t Referred To Contact Reed Goodman P.A.-C. [address] [place] [address] Phone: tel: fax: [facility] Region Referral ID Status Reason Start Date Expiration Date Visits Re quested Visits Authorized [id number] Closed 12/14/2023 06/14/2025 1 1 Encounter Details Date Type Department Care Team (Late st Contact Info) Description 12/16/2024 2:00 PM MEDICAL BILLING CODER Office Visit Department of Family Medicine, [facility], in [place], [place] [address] [facility] [place] [address] Reed Goodman P.A.-C. [address] [facility] [place] [address] Erika Arita, RLeoNLeo [address] [place] [address] Annual Medicare Examination Return (Primary Dx) Social History Tobacco Use Types Packs/Day Years Used Date Smoking Tobacco: Former Cigarettes Q uit: 09/24/1971 Smokeless Tobacco: Never Alcohol Use Standard Drinks/Week Comments Yes 10 (1 standard drink = 0.6 oz pu re alcohol) [facility] [employer] Answer Date Recorded In the past 12 months has [facility] [employer], gas, oil, or water [employer] threatened to shut off services in your [...] 05/27/2022 How often do you attend chur ch or caodaism services? Never 05/27/2022 Do you belong to any clubs o r organizations such as caodaism groups, unions, fraternal or athletic groups, or [...] Answer Date Recorded PHQ-2 Score 2 12/16/2024 [facility] - Occupational Stress Questionnaire Answer Date Recorded [...] your living situation today? I have a [facility] to live 12/09/2024 Education Answer Date Recorded What is the highest level of school you have completed or the highest degree you have received? Some college, no degree 09/25/2019 Comments No Sex and Gender Information Value Date Recorded Sex Assigned at Female 12/14/2023 12:48 PM MEDICAL BILLING CODER Legal Sex Female 9:49 PM MEDICAL BILLING CODER Gender Identity Female 12/14/2023 12:48 PM MEDICAL BILLING CODER Sexual Orientation Choose not to disclose 2023 12:48 PM MEDICAL BILLING CODER documented as of this encounter Patient Instructions * Patient Instructions* Erika Arita R.N. - 12/16/2024 2:00 PM MEDICAL BILLING CODER Thank you for coming in today! Consider: - Adding a variety of fruits and vegetables to your diet and/or limiting processed foods - Starting an exercise routine, start slow. Example: walking 10-15 minutes 3 to 4 times a week and increasing to 30 minutes 3 to 4 times a week; can be done in a mall or large store if outside is notan option Continue: - Eating a healthy diet; a variety of fruits and vegetables, minimizing processed foods and eating out - Keeping your home free of clutter, minimizing fall risks - Remaining physically active, following an exercise routine if you have one, or being up and moving frequently throughout the day - Remaining active in your community; group activities, volunteering - Staying up to date with your provider, keeping annual exams or follow ups, communicating health changes Reminder: If you have not done so, please schedule an appointment with your provider for annual physical, medication check if physical not covered by insurance, and your next Medicare Annual Wellness Visit will be due in 1 year. CAL BILLING CODER documented in this encounter Progress Notes * Erika Arita R.N. - 12/16/2024 2:00 PM CST HEALTH ASSESSMENT Reason For Visit Patient presents with Medicare Annual Wellness Visit Subsequent Face to Face The following portions of the patient's history were reviewed and updated as appropriate: allergies, medications, family history, social history, surgical history and care team/suppliers. VITALS Blood Pressure: 120/79 (12/16/2024 12:45 PM) Temperature: (!) 35.8 ??C (12/16/2024 12:45 PM) Temp Source: Temporal (12/16/2024 12:45 PM) Pulse Rate: 74 (12/16/2024 12:45 PM) Resp Rate: 16 (12/16/2024 12:45 PM) Weight: 54.6 kg (12/16/2024 12:45 PM) Health Risk Assessment and Social Determinants of Health Health Risk Assessment (HRA) completed and reviewed: Yes Social Determinants of Health (SDOH) questionnaires were reviewed during this visit. The following concerns were prioritized to be addressed: Depression. Concern: is more down and has more anger and isolation/loneliness, much of this is due to eyesight, Depression Screening PHQ-2 Score: (Patient-Rptd) 2 PHQ-9 Total Score (max 27): (Patient-Rptd) 12 Cognitive Assessment Cognitive function assessed by direct observation without concerns. Current Opioid Use None Education regarding non-opioid options for pain management not applicable at this time. FUNCTIONAL/HOME ENVIRONMENT History of falls: Have you fallen within the last year or do you fear you might fall?: Yes (12/16/2024 12:42 PM) Home Safety Patient's home contains the following: Throw Rugs No. Adequate lighting: Yes. Slippery bathtub and/or shower surfaces: No. Grab bars installed in the bathroom: Yes. Handrails on steps/stairs: Yes. Functional smoke/carbon monoxide alarms: Yes. Patient is reminded to change the batteries every 6 months if device is not A/C powered or hard-wired into the home. Advance Directive Advance Directives: Received 04/16/2021 Advance directive completed and a copy is on file. Patient confirms that healthcare agents listed are still current and the advance directive is up to date. No further action required at this time. Preventive Services Schedule Health Maintenance Topic Date Due Hepatitis B Vaccines (1 of 3 - Risk 3-dose series) Never done Depression Monitoring (PHQ-9 for quality tracking) Never done COVID-19 Vaccine ( season) 2025 Depression Monitoring (PHQ-9) 04/15/2025 Creatinine Level (Kidney Function Test) 06/11/2025 Potassium Level 06/11/2025 Sodium Level 06/11/2025 Hemoglobin A1C 06/11/2025 Urine Albumin 06/11/2025 Diabetes Education 06/13/2025 Visit: Chronic Disease, age 18+ 06/13/2025 Diabetic Office Visit with Foot Exam 06/13/2025 Dilated Eye Exam 08/26/2025 Visit: Medicare Annual Wellness 12/17/2025 DTaP,Tdap,and Td Vaccines (3 - Td or Tdap) 06/13/2034 Fall Risk Screen (Annual) Completed RSV vaccine - (32-36 weeks) or 60+ years Completed Pneumococcal vaccine (50+ years) Completed Influenza Vaccine Completed Zoster Vaccines Completed IPV Vaccines Aged Out Colorectal Cancer Surveillance Discontinued After Visit Summary (AVS) reviewed and patient provided with printed copy CAL BILLING CODER documented in this encounter Plan of Treatment Scheduled Referrals Name Type Priority Associated Diagnoses Orde r Schedule Primary Care nurse visit (clinic) - [facility] Region; Medicare Annual Wellness Outpatient Referral Routine Expected: 12/16/2025 (Approximate), Expires: 03/15/2026 documented as of this encounter Visit Diagnoses Diagnosis Annual Medicare Examination Return- Primary documented in this encounter Additional Health Concerns Assessment Noted Time PHQ-9 Depression Total Score: 12 025 12:24 PM MEDICAL BILLING CODER documented as of this encounter Care Teams Economic Geographer Relationship Specialty Start Date End Date Reed Goodman P.A.-C. [address] [place], [place] [address] [address] PCP - General Family Medicine 02/16/23 Ericka Quinn 10/23/11 documented as of this encounter
--- OUTSIDE RECORDS SUMMARY | 2025-01-15 14:57 | XMS_ITS | Clinical Summary ---
Author Organization [facility] Address [address] [place] [address] Care Team Providers Care Highway Maintenance Technician Name Role Phone Reed Goodman P.A.-C. Primary Care Provider Source Comments Patient records contain information from all sites at [facility]. For routine questions regarding patient records, call [phone] during business hours, M-F 8:00 AM - 5:00 PM Central Time. Record requests for emergency care only can be directed to [phone] at any time.[facility] Allergies Active Allergy Reactions Criticality Noted Date Comments Amoxicillin Rash 08/17/2010 Penicillin V Rash Low 03/01/2017 Rofecoxib Other (see comments) 08/17/2010 Weakness Medications peg 400-propylene glycol (SYSTANE) 0.4-0.3 % ophthalmic solution 1 drop 3 (three) times a day as needed for dry eyes. Active vitamins A,C,E-zinc-aruna er (PRESERVISION AREDS) 7,160 Units-113 mg-100 Units per tablet Take 1 tablet by mouth 2 (two) times a day. Areds 2 Active atorvastatin (Lipitor) 40 mg tablet Take 1 tablet (40 mg total) by mouth at bedtime. 90 tablet 3 4 06/13/20 25 Active DULoxetine (Cymbalta) [address] capsule Take 1 capsule (30 mg total) by mouth 2 (two) times a day. 180 capsule 3 4 06/13/20 25 Active Additional Information Patient taking differently:30 mg oral 2 times daily,Taking once daily, Informant: Self, Reported on 12/16/2024 fluticasone propionate (Flonase) 50 mcg/actuation nasal spray Administer 2 sprays into each nostril daily. Shake well before use. 48 g 3 4 Active levothyroxine 50 mcg tablet Take 1 tablet (50 mcg total) by mouth daily. 90 tablet 3 4 Active lisinopriL 40 mg tablet Take 1 tablet (40 mg total) by mouth daily. 90 tablet 3 4 Active metFORMIN XR (Glucophage-XR) 500 mg 24 hr tablet Take 1 tablet (500 mg total) by mouth daily with morning meal. 90 tablet 3 4 06/13/20 25 Active metoprolol succinate (Toprol XL) 100 mg 24 hr tablet Take 1 tablet (100 mg total) by mouth daily. Do not crush or chew. 90 tablet 3 4 Active montelukast (Singulair) 10 mg tablet Take 1 tablet (10 mg total) by mouth every evening. 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 Overview (03/14/2017): Mild recurrent major depression Diabetes Mellitus Type 2 Without Complication Overview (03/14/2017): Diabetes type II NOS Hypertension Essential Primary 08/17/2010 Overview (03/14/2017): Hypertension NOS Hyperlipidemia 08/17/2010 Hypothyroidism 08/17/2010 Resolved Problems Problem Noted Date Diagnosed Date Resolved Date Bleeding Rectal 04/22/2021 05/27/2022 Hypercalcemia 01/31/2018 12/01/2022 Transient Ischemic Attack 08/17/2010 Encounters Date Type Department Care Team Description 12/16/2024 2:00 PM RN ELIGIBILITY Office Visit Department of Family Medicine, [facility], in [place], [place] [address] [place] [address] Reed Goodman P.A.-Erika Boyce R.N. Annual Medicare Examination Return (Primary Dx) 12/16/2024 1:00 PM RN ELIGIBILITY Office Visit Department of Family Medicine, [facility], in [place], [place] [address] [place] [address] Reed Goodman P.A.-CLeo Hypothyroidism (Primary Dx); Depression Major Recurrent Mild (HCC); Diabetes Mellitus Type 2 Without Complication (HCC); Debility; Cerumen Impacted Bilateral 12/12/2024 12:06 PM RN ELIGIBILITY - 12/12/2024 11:59 PM RN ELIGIBILITY Hospital Encounter Department of Laboratory Medicine in [place], [place] [address] [place] [address] Reed Goodman P.A.-CLeo Diabetes Mellitus Type 2 Without Complication (HCC) Discharge Disposition: Home or Self Care from Last 3 Months Immunizations Immunization Administration Dates Next Due HZV (ZOSTAVAX) 07/08/2013,07/17/2009 Influenza high dose QV(65 ye ars or older) (PF) 08/10/2022,08/16/2021,06/30/2020 Influenza, Seasonal, Injectable 08/15/2012 Influenza, Unspecified 08/31/2016,2013,07/24/2013,2011,07/14/2011,07/27/2010 PCV13 04/07/2015 PPSV23 02/15/2011,09/06/2009,08/31/2004 RSV: respiratory syncytial v irus (ABRYSVO) bivalent vaccine 11/28/2023 RZV (SHINGRIX) 12/01/2022, 2,05/27/2022(Deferr ed: Other - Not Covered by Insurance) SARS-COV-2 (COVID-19) - MODE RNA (12 YEARS AND OLDER) Fall Seasonal 10/04/2023 SARS-COV-2 (COVID-19) - PFIZ ER (Discontinued)(12 years or older) 01/09/2021 Td Preservative Free (TENIVA C, DECAVAC) 07/17/2009 Tdap 06/13/2024,02/15/2011 influenza trivalent high dos e (HD)(PF) 07/29/2024,08/15/2023,08/07/2019,2017,08/03/2017,08/31/2016 influenza trivalent vaccine (6 months and older)(PF) 07/08/2009 Family History Medical History Relation Name Comments Breast cancer Daughter Denia Multiple sclerosis Daughter Denia Alcohol abuse Father Early Father Macular degeneration Mother Accident Son Amputation Son Heart attack Son Relation Name Status Comments Daughter Denia Father Mother Son Social History Tobacco Use Types Packs/Day Years Used Date Smoking Tobacco: Former Cigarettes Q uit: 09/24/1971 Smokeless Tobacco: Never Tobacco Cessation:Counseling Given: Not Answered Alcohol Use Standard Drinks/Week Comments Yes 10 (1 standard drink = 0.6 oz pu re alcohol) [facility] Style [employer] Answer Date Recorded In the past 12 months has th e xiao qu wu you, gas, oil, or water [employer] threatened to shut off services in your [...] often do you attend chur ch or mu-ism services? Never 05/27/2022 Do you belong to any clubs o r organizations such as amish groups, unions, fraternal or athletic groups, or [...] Answer Date Recorded PHQ-2 Score 2 12/16/2024 [facility] [place] of Occupat ional Health - Occupational Stress [...] your living situation today? I have a [facility] place to live 12/09/2024 Education Answer Date Recorded What is the highest level of school you have completed or the highest degree you have received? Some college, no degree 09/25/2019 Comments No Sex and Gender Information Value Date Recorded Sex Assigned at Female 12/14/2023 12:48 PM RN ELIGIBILITY Legal Sex Female 9:49 PM RN ELIGIBILITY Gender Identity Female 12/14/2023 12:48 PM RN ELIGIBILITY Sexual Orientation Choose not to disclose 2023 12:48 PM RN ELIGIBILITY Last Filed Vital Signs Vital Sign Reading Time Taken Comments Blood Pressure 120/79 12/16/2024 12:45 PM RN ELIGIBILITY Pulse 74 12/16/2024 12:45 PM RN ELIGIBILITY Temperature 35.8 C (96.4 F) 12/16/2024 12:45 PM RN ELIGIBILITY Respiratory Rate 16 12/16/2024 12:45 PM RN ELIGIBILITY Oxygen Saturation 93% 07/20/2021 3:47 PM CDT Inhaled Oxygen Concentration - - Weight 54.6 kg (120 lb 5.9 oz) 12/16/2024 12:45 PM RN ELIGIBILITY Height 161 cm (5' 3.39) 12/14/2023 1:28 PM RN ELIGIBILITY Body Mass Index 21.06 12/14/2023 1:28 PM RN ELIGIBILITY Plan of Treatment Health Maintenance Due Date Last Done Comments Hepatitis B Vaccines (1 of 3 - Risk 3-dose series) 1997 Depression Monitoring (PHQ-9 for quality tracking) 10/23/2024 COVID-19 Vaccine ( season) 2025 07/29/2024, 10/04/2023, 04/06/2023, Additional history exists Depression Monitoring (PHQ-9) 04/15/2025 12/16/2024 Creatinine Level (Kidney Function Test) 06/11/2025 06/11/2024, 12/11/2023, 06/07/2023, Additional history exists Hemoglobin A1C 06/11/2025 12/12/2024, 05/24, 12/11/2023, Additional history exists Potassium Level 06/11/2025 06/11/2024, 11/23, 06/07/2023, Additional history exists Sodium Level 06/11/2025 06/11/2024, 11/23, 06/07/2023, Additional history exists Urine Albumin 06/11/2025 06/11/2024, 05/23, 05/24/2022, Additional history exists Diabetes Education 06/13/2025 06/13/2024, 0 06/07/2023, 05/27/2022, Additional history exists Diabetic Office Visit with Foot Exam 06/13/2025 06/13/2024, 06/07/2023, 05/27/2022, Additional history exists Dilated Eye Exam 08/26/2025 08/26/2024 (Per formed elsewhere), 05/06/2022 (Performed elsewhere), 03/12/2018 (Performed elsewhere), Additional history exists Visit: Chronic Disease, age 18+ 12/16/2025 12/16/2024, 06/13/2024 Visit: Medicare Annual Wellness 12/17/2025 12/16/2024 DTaP,Tdap,and Td Vaccines (3 - Td or Tdap) 06/13/2034 06/13/2024, 02/15/2011, 07/17/2009 Pneumococcal vaccine (50+ years) Completed 04/07/2015, 02/15/2011, 09/06/2009, Additional history exists CT Colonography Discontinued 07/20/2021 Colonoscopy Discontinued 07/20/2021, 06/24, 05/27/2021, Additional history exists Colorectal Cancer Surveillance Discontinued Zoster Vaccines Completed 12/01/2022, 05/23, 07/08/2013, Additional history exists RSV vaccine - (32-36 weeks) or 60+ years Completed 11/28/2023 Influenza Vaccine Completed 07/29/2024, , 08/10/2022, Additional history exists Fall Risk Screen (Annual) Completed 12/16/2024 Cologuard Discontinued IPV Vaccines Aged Out No longer eligi ble based on patient's age to complete this topic Medical Devices Implanted Type Area Apprise Counselor Device Identifier Shelf Expiration Date Model / Serial / Lot Ocular Lens Ocular Lens Bilateral : Eye Procedures Procedure Name Priority Date/Time Associated Diagnosis Comments TN RMVL IMPACT CERUMEN IRRIG UNILAT Routine 12/16/2024 1:00 PM RN ELIGIBILITY Cerumen Impacted Bilateral HEMOGLOBIN A1C, B Routine 12/12/2024 12:25 PM RN ELIGIBILITY Diabetes Mellitus Type 2 Without Complication (HCC) ALBUMIN, RANDOM, U Routine 06/11/2024 11:02 AM CDT Diabetes Mellitus Type 2 Without Complication (HCC) Hypothyroidism COMPREHENSIVE METABOLIC PANEL, S/P Routine 06/11/2024 10:59 AM CDT Diabetes Mellitus Type 2 Without Complication (HCC) Hypothyroidism COLONOSCOPY Routine 07/20/2021 1:[address] COLONOGRAPHY SCREENING WITHOUT IV CONTRAST RAD - Routine (most inpatients and all outpatients) 07/20/2021 9:30 AM CDT Screening Cancer Colon from Last 3 Months or Most Recently Relevant to Health Maintenance Results * TN RMVL IMPACT CERUMEN IRRIG UNILAT (12/16/2024 1:00 PM RN ELIGIBILITY) Narrative MMODAL - 12/16/2024 1:00 PM RN ELIGIBILITY Anisha Jordan LLeoP.N. 12/16/2024 4:31 PM FAM Ear wax removal procedure Performed by: Anisha Jordan L.PLeoNLeo Authorized by: Reed Goodman P.AEnrique PROCEDURE DETAILS Location: left ear and right ear Procedure type: irrigation Scope used: otoscope CONSENT Consent obtained: verbal Consent given by: patient PRE-PROCEDURE DETAILS Indication: cerumen impaction POST-PROCEDURE DETAILS Inspection: partial impaction removal Procedure completed successfully: yes us Reed Goodman P.A.-C. PROCEDURE/MINOR SURGIC AL ORDERABLES Final Result MMODAL NA * (ABNORMAL) Hemoglobin A1c (12/12/2024 12:25 PM RN ELIGIBILITY) Hemoglobin A1c, B 7.0(H) 4.2 - 5.6 % 12/12/2024 6:20 PM RN ELIGIBILITY OWAT Comment: Hemoglobin A1c values greater than or equal to 6.5 percent are diagnostic for diabetes mellitus. Diagnosis should be confirmed by repeat testing. In diabetic patients, HbA1c goals should be discussed with healthcare provider. Blood (Blood, Venous) 12/12/2024 12:25 PM RN ELIGIBILITY 12/12/2024 5:58 PM RN ELIGIBILITY Reed Goodman P.A.-C. LAB BLOOD ADD-ON Final Result Performing Organization Address City/[facility] Co de Phone Number [facility] [address] [place] [address], [facility] OWAT [facility] in [place] [address] [address] * (ABNORMAL) Albumin, Random, Urine (06/11/2024 11:02 AM CDT) Microalbumin 211.0 mg/L 06/11/2024 2:33 PM CDT OWAT Creatinine 219 mg/dL 06/11/2024 2:33 PM CDT OWAT Albumin/Creatinin e Ratio 96(H) <25 mg/g 06/11/2024 2:33 PM CDT OWAT Urine (Urine, Voided) 06/11/2024 11:02 AM CDT 06/11/2024 1:21 PM CDT Reed Goodman P.A.-C. LAB URINE ORDERABLES F inal Result Performing Organization Address [facility] Co de Phone Number [facility] [address] [place] [address], [place] OWAT [facility] in [place] [address] [place] [address] * (ABNORMAL) Comprehensive Metabolic Panel (06/11/2024 10:59 AM CDT) Potassium, P 4.9 3.6 - 5.2 mmol/L 06/11/2024 2:16 PM CDT OWAT Sodium, P 136 135 - 145 mmol/L 06/11/2024 2:16 PM CDT OWAT Chloride, P 100 98 - 107 mmol/L 06/11/2024 2:16 PM CDT OWAT Bicarbonate, P 25 22 - 29 mmol/L 06/11/2024 2:16 PM CDT OWAT Anion Gap, P 11 7 - 15 06/11/2024 2:16 PM CDT OWAT BUN (Blood Urea Nitrogen), P 18 6 - 21 mg/dL 06/11/2024 2:16 PM CDT OWAT Creatinine 1.43(H) 0.59 - 1.04 mg/dL 06/11/2024 2:16 PM CDT OWAT Estimated GFR (eGFR) 35(L) >=60 mL/min/BS A 06/11/2024 2:16 PM CDT OWAT Comment: Estimated GFR calculated using the 2020 CKD_EPI creatinine equation. Calcium, Total, P 9.6 8.8 - 10.2 mg/dL 06/11/2024 2:16 PM CDT OWAT Glucose, P 147(H) 70 - 140 mg/dL 06/11/2024 2:16 PM CDT OWAT Protein, Total, P 7.0 6.3 - 7.9 g/dL 06/11/2024 2:16 PM CDT OWAT Albumin, P 4.5 3.5 - 5.0 g/dL 06/11/2024 2:16 PM CDT OWAT Aspartate Aminotransferase (AST), P 20 8 - 43 U/L 06/11/2024 2:16 PM CDT OWAT Alkaline Phosphatase, P 193(H) 35 - 104 U/L 06/11/2024 2:16 PM CDT OWAT Alanine Aminotransferase (ALT), P 12 7 - 45 U/L 06/11/2024 2:16 PM CDT OWAT Bilirubin, Total, P 0.5 0.0 - 1.2 mg/dL 06/11/2024 2:16 PM CDT OWAT Blood (Blood, Venous) 06/11/2024 10:59 AM CDT 06/11/2024 1:22 PM CDT Reed L Roethler P.A.-C. LAB BLOOD ADD-ON Final Result [facility] [address] [place] [address], [facility] OWAT [facility] in [place] [address] [place] [address] * CT Colonography Screening without IV Contrast (07/20/2021 9:30 AM CDT) Anatomical Region Laterality Modality Abdomen, Pelvis, Abdominal R ST LOS, Abdominal ARZ LOS, Abdominal FLA LOS N/A Computed Tomograp hy, Computed Tomography 07/20/2021 9:27 AM CDT Impressions 07/20/2021 10:14 AM CDT Small 7 mm polyp in the distal transverse colon. Narrative 07/20/2021 10:14 AM CDT EXAM: CT COLONOGRAPHY DIAGNOSTIC WITHOUT IV CONTRAST FINDINGS: COLONIC FINDINGS: Colon exam is POSITIVE: Small particles of tagged stool are seen throughout the colon. There is a 7 mm sessile polyp in the distal transverse colon (series 2 image 239). Sigmoid diverticulosis with muscular hypertrophy. EXTRACOLONIC FINDINGS: INCIDENTAL: Calcified granulomas in the lung bases. Large hiatal hernia. Vascular calcifications. Tiny calcification in the inferior pole of the left kidney. Hysterectomy. TECHNIQUE: Low-dose CT images performed in multiple positions after colonic insufflation. Preparation: Satisfactory Dose: Low IV contrast material: Not administered Glucagon: 1mg administered subcutaneously Complications: None Exam Codes: C2; E2 Procedure Note Yemi Stevenson M.D. - 07/20/2021 EXAM: CT COLONOGRAPHY DIAGNOSTIC WITHOUT IV CONTRAST FINDINGS: COLONIC FINDINGS: Colon exam is POSITIVE: Small particles of taggedstool are seen throughout the colon. There is a 7 mm sessile polyp in the distal transverse colon (series 2 image 239). Sigmoid diverticulosis withmuscular hypertrophy. EXTRACOLONIC FINDINGS: INCIDENTAL: Calcified granulomas in the lung bases. Large hiatalhernia. Vascular calcifications. Tiny calcification in the inferior pole of theleft kidney. Hysterectomy. TECHNIQUE: Low-dose CT images performed in multiple positions aftercolonic insufflation. Preparation: Satisfactory Dose: Low IV contrast material: Not administered Glucagon: 1mg administered subcutaneously Complications: None Exam Codes: C2; E2 IMPRESSION: Small 7 mm polyp in the distal transverse colon. Reed Goodman P.A.-C. IMG CT PROCEDURES Kristen pacheco Result from Last 3 Months or Most Recently Relevant to Health Maintenance Insurance MEDICARE [facility] Advance Directives For more information, please contact: [phone] Documents on File Type Date Recorded Patient Sole Leveling Machine Operator Expl anation Advance Directives 04/16/2021 4:40 PM POLS T Advance Directives 04/08/2021 8:50 AM POLS T Care Teams Highway Maintenance Technician Relationship Specialty Start Date End Date Reed Goodman P.A.-C. [address] [place] [address] [place]JI [id number] PCP - General Family Medicine 02/16/23 Ericka Quinn 10/23/11
[2025-01-15 15:06] LABS: Slide Review Reflex No
[2025-01-15 15:28] LABS: Appearance Urine Clear (Clear); Bilirubin Urine Negative (Negative); Blood Urine Negative (Negative); Color Urine Yellow (Yellow); Glucose Urine Negative (Negative); Ketones Urine Negative (Negative); Leukocyte Esterase Urine Negative (Negative); Nitrite Urine Negative (Negative); Protein Urine 1+ (Negative); Specific Gravity Urine 1.015 (1.000-1.030); Urobilinogen Urine 0.2 (0.2-1.0); pH Urine 5.5 (5.0-8.5)
[2025-01-15 15:57] LABS: RBC Urine 0-2 (0-2); WBC Urine 0-2 (0-5)
== END 2025-01-15 16:23 | disposition home or self-care (01) ==
PROVIDERS: Emergency Provider Family Medicine; PCP Physician Assistant
DX: R53.1 Weakness (principal); R53.83 Other fatigue
CPT/HCPCS: 36415; 70450; 80048; 80076; 81001; 83880; 84484; 85025; 85610; 86140; 87086; 87631; 93005; 94761; 99284; 99285; J7030